=== PATIENT | male | born 1985 | race Caucasian/White ===

== ENCOUNTER 2019-01-18 02:07 | Emergency (ER) | payer SELFPAY ==
[~2019-01-18] VITALS: Ht 180.3 cm; Wt 104.3 kg
[2019-01-18] MEDS ORDERED: NORCO 5-325 TA1 EACH PO (02:50)
== END 2019-01-18 03:01 | disposition home or self-care (01) ==
LOC: ED 02:07
PROC: 08C8XZZ Extirpation of Matter from Right Cornea, External Approach (ICD-10-PCS; principal; 2019-01-18)
DX: T15.01XA Foreign body in cornea, right eye, initial encounter (principal); F17.200 Nicotine dependence, unspecified, uncomplicated; X58.XXXA Exposure to other specified factors, initial encounter
CPT/HCPCS: 65222; 99283-25

== ENCOUNTER 2019-11-07 22:01 | Emergency (ER) | payer OTHER ==
[~2019-11-07] VITALS: Ht 180.3 cm; Wt 104.3 kg
[~2019-11-07 22:01] MED LIST: NORCO 5-325 TA1 EACH PO
[2019-11-07] MEDS ORDERED: GUAIFENESIN AC473 ML PO (23:23)
== END 2019-11-07 23:54 | disposition home or self-care (01) ==
LOC: ED 22:01
DX: J10.1 Influenza due to other identified influenza virus with other respiratory manifestations (principal); F17.200 Nicotine dependence, unspecified, uncomplicated
CPT/HCPCS: 71046; 87502; 99283-25

== ENCOUNTER 2020-04-23 05:09 | Emergency (ER) | payer OTHER ==
[~2020-04-23] VITALS: Ht 180.3 cm; Wt 106.6 kg
[~2020-04-23 05:09] MED LIST changes: +GUAIFENESIN AC473 ML PO
--- NOTE | 2020-04-23 15:41 | EKG ---
[facility] [address] [facility] [place] [address] Signed Sinus tachycardia Moderate voltage criteria for LVH, may be normal variant Cannot rule out Septal infarct , age undetermined Possible Inferior infarct , age undetermined Abnormal ECG No previous ECGs available Confirmed by RON DIAZ MD ([id number]) on 04/23/2020 3:41:49 PM Electronically Signed By: RON DIAZ MD 04/23/20 1541 PATIENT NAME: MARINOVERONICA I Electrocardiogram DATE OF : 85 PHYSICIAN: RON DIAZ MD REPORT #: [id number] REPORT IS CONFIDENTIAL AND NOT TO BE RELEASED WITHOUT AUTHORIZATION
== END 2020-04-23 07:32 | disposition home or self-care (01) ==
LOC: ED 05:09
DX: S93.402A Sprain of unspecified ligament of left ankle, initial encounter (principal); R00.0 Tachycardia, unspecified; E86.0 Dehydration; F10.129 Alcohol abuse with intoxication, unspecified; F15.90 Other stimulant use, unspecified, uncomplicated; Z23 Encounter for immunization; E11.9 Type 2 diabetes mellitus without complications; F17.200 Nicotine dependence, unspecified, uncomplicated; X58.XXXA Exposure to other specified factors, initial encounter
CPT/HCPCS: 51701; 73030; 73610; 80053; 81001; 83735; 84484; 85025; 90471; 90715; 93005; 93010; 99285-25; G0480; J7030

== ENCOUNTER 2020-09-28 14:34 | Emergency (ER) | payer OTHER ==
[~2020-09-28] VITALS: Ht 180.3 cm; Wt 106.6 kg
[2020-09-29] MEDS ORDERED: IVERMECTIN3 MG PO (09:41)
== END 2020-09-28 17:45 | disposition home or self-care (01) ==
LOC: ED 14:34
DX: R21 Rash and other nonspecific skin eruption (principal)

== ENCOUNTER 2020-09-29 08:53 | Emergency (ER) | payer OTHER ==
[~2020-09-29] VITALS: Ht 180.3 cm; Wt 106.6 kg
--- OUTSIDE RECORDS SUMMARY | 2020-09-29 08:56 | XMS ---
PreManage Notification: VERONICA MARINO Security Coordinator Cardiopulmonary Services Events No recent Security Events currently on file CRITERIA MET - [facility] - 2 Visits in 30 Days CARE PROVIDERS There are no care providers on record at this time. Monica has no Care Guidelines for this patient. [facility]12 MO.) [facility] NOTE: Visits indicate total known visits. ED/C VISIT TRACKING (12 MO.) [facility]29[facility]2020 08[facility] COMPLAINT: - BODY RASH 09/28/2020 14:34 [facility] [place] TYPE: Emergency COMPLAINT: - SKIN PROBLEM, RASH 04/23/2020 05:09 [facility] [place] TYPE: Emergency COMPLAINT: - L ANKLE INJ DIAGNOSES: - Pain in left ankle and joints of left foot - Nicotine dependence, unspecified, uncomplicated - Encounter for immunization - Alcohol abuse with intoxication, unspecified - Type 2 diabetes mellitus without complications - Dehydration - Sprain of unspecified ligament of left ankle, initial encounter - Exposure to other specified factors, initial encounter - Tachycardia, unspecified - Other stimulant use, unspecified, uncomplicated 11/07/2019 22:01 [facility] [place] TYPE: Emergency COMPLAINT: - COUGH,SOB DIAGNOSES: - Cough - Nicotine dependence, unspecified, uncomplicated - Influenza due to other identified influenza virus with other respiratory manifestations INPATIENT VISIT TRACKING (12 MO.) No inpatient visits to display in this time frame [email or web address]
[2020-09-29] MEDS ORDERED: IVERMECTIN3 MG PO (09:41)
== END 2020-09-29 09:51 | disposition home or self-care (01) ==
LOC: ED 08:53
DX: B86 Scabies (principal); E11.9 Type 2 diabetes mellitus without complications; F17.200 Nicotine dependence, unspecified, uncomplicated
CPT/HCPCS: 99282

== ENCOUNTER 2021-04-12 12:35 | Emergency (ER) | payer OTHER ==
[~2021-04-12] VITALS: Ht 180.3 cm; Wt 109.8 kg
[~2021-04-12 12:35] MED LIST changes: +IVERMECTIN3 MG PO
[2021-04-12] MEDS ORDERED: PRILOSEC OTC20 MG PO (13:34)
[2021-04-12] MEDS ORDERED: BLEPH-105 ML OPTH (17:41)
== END 2021-04-12 18:10 | disposition home or self-care (01) ==
LOC: ED 12:35
DX: T65.891A Toxic effect of other specified substances, accidental (unintentional), initial encounter (principal); H10.213 Acute toxic conjunctivitis, bilateral; Z87.891 Personal history of nicotine dependence; Z79.899 Other long term (current) drug therapy
CPT/HCPCS: 99283

== ENCOUNTER 2021-07-31 12:20 | Emergency (ER) | payer OTHER ==
[~2021-07-31] VITALS: Ht 180.3 cm; Wt 109.8 kg
[~2021-07-31 12:20] MED LIST changes: +BLEPH-105 ML OPTH; +PRILOSEC OTC20 MG PO
== END 2021-07-31 14:03 | disposition home or self-care (01) ==
LOC: ED 12:20
DX: H10.12 Acute atopic conjunctivitis, left eye (principal); Z87.891 Personal history of nicotine dependence
CPT/HCPCS: 99283

== ENCOUNTER 2022-11-01 14:41 | Emergency (ER) | payer OTHER ==
[~2022-11-01] VITALS: Ht 180.3 cm; Wt 109.8 kg
[~2022-11-01 14:41] MED LIST changes: +HYDROCODON-ACE1 EA10 PO; +NAPROSYN500 MG PO
[2022-11-01] MEDS ORDERED: ONDANSETRON ODT4 MG PO (18:21)
[2022-11-01] MEDS ORDERED: DICYCLOMINE HCL20 MG PO (18:21)
--- NOTE | 2022-11-01 21:51 | EKG ---
[facility] [address] [facility] [place] [address] Signed Sinus tachycardia Cannot rule out Anterior infarct (cited on or before 23-APR-2020) Abnormal ECG When compared with ECG of 23-APR-2020 05:14, Borderline criteria for Inferior infarct are no longer present Questionable change in initial forces of Septal leads Confirmed by Addy Merida MD () on 11/01/2022 9:51:20 PM Electronically Signed By: ADDY MERIDA MD 11/01/222150 PATIENT NAME: VERONICA MARINO I Electrocardiogram DATE OF : 85 PHYSICIAN: ADDY MERIDA MD REPORT #: [id number] REPORT IS CONFIDENTIAL AND NOT TO BE RELEASED WITHOUT AUTHORIZATION
== END 2022-11-01 19:00 | disposition home or self-care (01) ==
LOC: ED 14:41
DX: K52.9 Noninfective gastroenteritis and colitis, unspecified (principal); Z87.891 Personal history of nicotine dependence; Z79.899 Other long term (current) drug therapy; Z20.822 Contact with and (suspected) exposure to COVID-19
CPT/HCPCS: 36415; 74177; 80053; 81003; 83605; 83690; 85025; 87502; 93005; 93010; 96361; 96375; 99284-25; C9803; J1170; J2405; J7030; Q9967; U0003

== ENCOUNTER 2023-07-31 09:45 | Emergency (ER) | payer OTHER ==
[~2023-07-31] VITALS: Ht 180.3 cm; Wt 111.5 kg
[~2023-07-31 09:45] MED LIST changes: +DICYCLOMINE HCL20 MG PO; +ONDANSETRON ODT4 MG PO; +PENICILLIN V P500 MG PO
[2023-07-31] MEDS ORDERED: AMOX TR-K CLV1 EAC1 PO (10:03)
[2023-07-31] MEDS ORDERED: BACTRIM DS TAB1 EACH PO (10:31)
[2023-07-31] MEDS ORDERED: FAMCICLOVIR500 MG PO (10:31)
[2023-07-31 10:40] VITALS: BP 142/82
== END 2023-07-31 10:40 | disposition home or self-care (01) ==
LOC: ED 09:45
DX: L03.211 Cellulitis of face (principal); Z87.891 Personal history of nicotine dependence; Z91.09 Other allergy status, other than to drugs and biological substances
CPT/HCPCS: 99283; A9270

== ENCOUNTER 2024-08-10 15:10 | Emergency (ER) | payer OTHER ==
[~2024-08-10] VITALS: Ht 180.3 cm; Wt 115.9 kg
[~2024-08-10 15:10] MED LIST changes: +AMOX TR-K CLV1 EAC1 PO; +BACTRIM DS TAB1 EACH PO; +FAMCICLOVIR500 MG PO; +OXYCODONE HCL10 MG PO; +TYLENOL325 MG PO
[2024-08-10] MEDS ORDERED: DIPHTH,PERTUSS(ACELL),TET VAC 0.5 ML SYRINGE IM ONE (15:45)
[2024-08-10 17:44] VITALS: BP 166/96
== END 2024-08-10 17:44 | disposition home or self-care (01) ==
LOC: ED 15:10
DX: S61.012A Laceration without foreign body of left thumb without damage to nail, initial encounter (principal); Z87.891 Personal history of nicotine dependence; Z91.048 Other nonmedicinal substance allergy status; Z23 Encounter for immunization; W26.8XXA Contact with other sharp object(s), not elsewhere classified, initial encounter
CPT/HCPCS: 12001; 90471; 90715; 99282-25

== ENCOUNTER 2024-10-12 01:07 | Observation (INO) | payer OTHER ==
[~2024-10-12] VITALS: Ht 180.3 cm; Wt 116.7 kg
[2024-10-12] MEDS ORDERED: ondansetron HCL 4 MG/2 ML VIAL IV ONE (01:30)
[2024-10-12] MEDS ORDERED: SODIUM CHLORIDE 0.9% 1,000 ML IV ONE (01:30)
[2024-10-12] MEDS ORDERED: MORPHINE SULFATE 4 MG/ML VIAL IV ONE (01:30)
[2024-10-12 01:52] LABS: BASOPHILS 0.9 % (0-2); EOSINOPHILS 2.3 % (0-6); HEMATOCRIT 48.6 % (35.0-50.0); HEMOGLOBIN 17.1 g/dL (12.0-18.0); LYMPHOCYTES 32.3 % (24-44); MCH 31.1 (27-36); MCHC 35.2 g/dl (30-36); MCV 88.3 fl (81-99); MONOCYTES 10.6 % (0-12); NEUTROPHILS 53.9 % (39-80); PLATELET COUNT 235 K/uL (140-440); RDW 11.8 (10.5-15.0)
[2024-10-12 02:07] LABS: ALBUMIN 3.9 g/dL (3.4-5.0); ALBUMIN/GLOBULIN RATIO 0.95 (1.1-2.4); ANION GAP 12.9 (7-21); BILIRUBIN, TOTAL 0.4 ng/dL (0.2-1.0); BUN/CREATININE RATIO 17.59 (6.0-28.6); CREATININE, SERUM 1.08 mg/dL (0.70-1.30); POTASSIUM 3.9 mmol/L (3.5-5.1)
[2024-10-12 02:39] LABS: BILIRUBIN, URINE NEGATIVE (negative); BLOOD/HGB, URINE NEGATIVE (Negative); KETONE, URINE TRACE (Negative); LEUK ESTERASE, URINE NEGATIVE (negative); NITRITE, URINE NEGATIVE (negative)
[2024-10-12] MEDS ORDERED: HYDROmorphone HCL 1 MG/ML SYR IV PRN (02:45)
[2024-10-12] MEDS ORDERED: HYDROmorphone HCL 1 MG/ML SYR IV ONE (05:00)
[2024-10-12] MEDS ORDERED: droPERidol 5 MG/2 ML VIAL IV ONE (05:15)
[2024-10-12] MEDS ORDERED: LACTATED RINGER'S 1,000 ML IV ONE (05:15)
[2024-10-12] MEDS ORDERED: LACTATED RINGER'S 1,000 ML IV SCH (07:00)
[2024-10-12] MEDS ORDERED: PROCHLORPERAZINE EDISYLATE 10 MG/2 ML VIAL IV PRN (07:00)
[2024-10-12] MEDS ORDERED: ondansetron HCL 4 MG/2 ML VIAL IV PRN (07:00)
[2024-10-12] MEDS ORDERED: FAMOTIDINE 20 MG/ 2 ML VIAL IV SCH (09:00)
[2024-10-12 10:06] VITALS: BP 166/95
[2024-10-12] MEDS ORDERED: MENTHOL/CETYLPYRD CL 1 LOZ LOZENGE PO PRN (10:30)
--- NOTE | 2024-10-12 10:45 | NUR ---
ADMISSION ASSESSMENT COMPLETE - PT AMBULATING AROUND BED IN ROOM, ANXIOUS TO RESOLVE OBSTRUCTION. PT IS PASSING GAS, DENIES ABD PAIN AT THIS TIME. ABD DISTENDED WITH ACTIVE TONES. NGT TO LIS, BILE WITH ALEX BLOOD FROM INSERTION DRAINING. IV SITE PATENT, IVF RUNNING. PT ORIENTED TO ROOM, URNIAL PROVIDED, DENIES QUETIONS AT THIS TIME.
[2024-10-12] MEDS ORDERED: PRILOSEC OTC20 MG PO (11:25)
--- NOTE | 2024-10-12 11:27 | NUR ---
MED REC COMPLETE
--- NOTE | 2024-10-12 11:36 | NUR ---
PT REQUESTED CEPACOL LOZENGE. DENIES FURTHER NEEDS.
--- NOTE | 2024-10-12 13:45 | NUR ---
REPORT REC'D FROM ABELARDO SEAY. PT NOTED AMBULATING IN [place], NGT CLAMPED, IVF INFUSING VIA PUMP. STEADY GAIT, NO C/O
[2024-10-12 14:45] VITALS: BP 179/98
[2024-10-12 14:54] VITALS: BP 179/98
--- NOTE | 2024-10-12 17:15 | NUR ---
PT AMBULATING IN [place], NO ACUTE DISTRESS NOTED.
[2024-10-12 18:24] VITALS: BP 179/98
--- NOTE | 2024-10-12 18:25 | NUR ---
SCD'S PLACED IN PATIENT ROOM AND DISCUSSED USE. PT THEN AMBULATING IN [place] AND PLANS TO USE SCD'S DURING NOC.
[2024-10-12 20:35] VITALS: BP 177/102
--- NOTE | 2024-10-12 21:15 | NUR ---
PT C/O PAIN AND NAUSEA. MEDICATED WITH ZOFRAN AND DILAUDID WELL SCHEDULED PEPCID. NGT CONTINUES TO DRAIN CLEAR BROWN/GREEN TINGED FLUID. MD REQUESTED NS BOLUS X 1L OVER 1H TO BE GIVEN, ORDER PLACED AND STARTED.
[2024-10-12] MEDS ORDERED: SODIUM CHLORIDE 0.9% 1,000 ML IV SCH (21:45)
[2024-10-12 21:50] VITALS: BP 177/102
[2024-10-13] VITALS (8 sets, daily range): BP systolic 14–182; BP diastolic 90–99
--- NOTE | 2024-10-13 00:02 | NUR ---
PT PLEASANT AND COOPERATIVE WITH CARE, AMBULATING FREQUENTLY T/O SHIFT. LATER IN THE EVENING PT STARTED TO C/O PAIN AND NAUSEA. PT WAS MEDICATED X3 FOR PAIN AND X2 FOR NAUSEA. PT TOLERATED IVF BOLUS. SUCTION CANISTER CHANGED, PATIENT PROVIDED URINAL FOR CONTINUED USE. CALL BRUNO IN REACH, SR UP X2, BED LOW POSITION AND LOCKED. PT A&O, INDEPENDENT IN ROOM
--- NOTE | 2024-10-13 01:52 | NUR ---
REPORT RECEIVED FROM JANA ZHOU AND CARE ASSUMED OF PT. IN TO CHECK ON HIM, EYES CLOSED, RESP EVEN AND UNLABORED. IVF INFUSING, NGT IN PLACE. CALL LIGHT INREACH.
--- NOTE | 2024-10-13 03:06 | NUR ---
PT RESTING WITH EYES CLSOED, RESP EVEN AND UNLABORED.
--- NOTE | 2024-10-13 05:50 | NUR ---
MD IN TO SEE PT, DISUSS NGT AND PLAN OF CARE. NGT WAS CUT BY TO REMOVE BLUE REFLUX VALVE. MD THEN STATES HE WANTS THE NGT CLAMPED, SO NEW ONE PLACED ON END OF NGT. PT UP TO AMBULATE IN HALLS.
[2024-10-13 07:26] LABS: BASOPHILS 0.5 % (0-2); EOSINOPHILS 1.1 % (0-6); HEMATOCRIT 46.4 % (35.0-50.0); HEMOGLOBIN 16.2 g/dL (12.0-18.0); LYMPHOCYTES 15.4 % (24-44); MCHC 34.9 g/dl (30-36); MCV 88.8 fl (81-99); PLATELET COUNT 216 K/uL (140-440); RBC 5.22 M/ul (4.3-5.7); RDW 11.7 (10.5-15.0)
--- NOTE | 2024-10-13 07:33 | NUR ---
VERBAL REPORT RECEIVED FROM ABELARDO NIELSEN. PT RESTS IN BED WITH EYES CLOSED, RESP EVEN AND UNLABORED.
[2024-10-13 07:35] LABS: ANION GAP 10.1 (7-21); BUN/CREATININE RATIO 11.92 (6.0-28.6); CREATININE, SERUM 1.09 mg/dL (0.70-1.30); POTASSIUM 4.1 mmol/L (3.5-5.1)
--- NOTE | 2024-10-13 10:03 | NUR ---
PT AMBLATES IN HALLWAY WITH STEADY GAIT.
--- NOTE | 2024-10-13 12:05 | NUR ---
NG CONNECTED TO [facility] FOR RESIDUAL CHECK.
--- NOTE | 2024-10-13 12:34 | NUR ---
PT REPORTS 8-05/21 RIGHT SINUS/NASAL PAIN AND CONGESTION. PT STATES HE USUALLY USES AFRIN SPRAY AND HAS BEEN USING IT IN THE LEFT NARE BUT CANNOT GET IT INTO THE RIGHT NARE DUE TO THE NG TUBE. PT VERBALIZES HE UNDERSTANDS THAT HE SHOULD NOT BE USING THE AFRIN SPRAY IN THE HOSPITAL WITHOUT THE DOCTOR ORDING BUT STATES, "I HAD TO USE IT, IT WHAT I USE AT HOME AND I COULDN'T TAKE IT ANY MORE." DILAUDID RECEIVED. NOTED 100 ML OF OUTPUT FROM SUCTION TO NG TUBE, VISCOUS AND RED TINGED. PT DENIES NAUSEA OR ABDOMINAL PAIN TODAY. REPORTS FLATUS.
--- NOTE | 2024-10-13 12:48 | NUR ---
DR. MARCANO NOTIFIED OF PT STATUS, RESIDUAL CHECK AND PT DISCOMFORT WITH NG TUBE AND AFRIN SPRAY USE. NEW ORDER RECEIVED FOR AFRIN SPRAY, DR. MARCANO ADVISES TO REINFORCED EDUCATION ON POC. NG TUBE TO BE CLAMPED AND RESIDUAL RE-CHECKED AT 1800. .
[2024-10-13] MEDS ORDERED: OXYMETAZOLINE HCL 30 ML BTL NAS PRN (13:00)
--- NOTE | 2024-10-13 13:03 | NUR ---
NG TUBE CLAMPED. REVIEWED POC WITH PT, PT VERBALIZES UNDERSTANDING AND IS AGREEALBE.
--- NOTE | 2024-10-13 14:08 | NUR ---
PT REPORTS "SPINNING NAUSEA FROM THE CONGESTION IN MY HEAD." COMPAZINE RECEIVED AND DILAUDID RECEIVED FOR HEADACHE PAIN, SEE EMAR.
--- NOTE | 2024-10-13 15:16 | NUR ---
PT RESTS IN BED WITH EYES CLOSED, RESP EVEN AND UNLABORED.
--- NOTE | 2024-10-13 17:58 | NUR ---
DR. MARCANO INTO ASSESS PT, NG TUBE RESIDUAL CHECKED, 100 MLS OF VISCOUS GREEN TINGED OUTPUT NOTED. DR. MARCANO REMOVED NG TUBE, PT TOLERATES THIS WELL. NEW ORDERS RECEIVED TO ADVANCE DIET TO CLEAR LIQUIDS AND DECREASE LR INFUSION RATE TO 125 ML/HR.
[2024-10-13] MEDS ORDERED: MAGNESIUM HYDROXIDE/AL HYDROX 30 ML CUP PO PRN (19:00)
--- NOTE | 2024-10-13 19:39 | NUR ---
Patient awake, alert and oriented x4, no acute distress. Patient reports tolerable pain, no nausea. Pt states he is going to walk in hallway with his . Call light within reach.
--- NOTE | 2024-10-13 20:37 | NUR ---
Patient reports throat pain, heartburn and headache. Admin dilaudid 0.5mg iv and cepacal lozenge. Patient denies nausea, acitve bowel tones x4 quadrants. Patient reports he is feeling much better after ng removal. Abdomen is soft to touch, pt reports passing flatus.
--- NOTE | 2024-10-14 03:43 | NUR ---
PT CALL LIGHT IN PLACE, IV FLUIDS COMPLETED. NEW BAG HUNG - SEE MAR. DENIES ANY FURTHER NEEDS AT THIS TIME. CALL LIGHT WITHIN REACH. ALL PT CARE NEEDS MET. PRIMARY RN NOTIFIED.
[2024-10-14 06:02] VITALS: BP 159/89
[2024-10-14 06:04] VITALS: BP 158/97
--- NOTE | 2024-10-14 07:18 | NUR ---
VERBAL REPORT RECEIVED FROM ABELARDO RUSH. PT AMBULATES HALLWAY SEVERAL TIMES, STEADY GAIT. NO REQUESTS AT THIS TIME.
--- NOTE | 2024-10-14 08:23 | NUR ---
Patient ambulating hallways.
--- NOTE | 2024-10-14 08:31 | NUR ---
IV TO ERICA.
[2024-10-14 08:48] VITALS: BP 158/84
[2024-10-14 08:50] VITALS: BP 158/84
--- NOTE | 2024-10-14 09:41 | NUR ---
ALERT AND ORIENTED IN RECLINER. STATES HE HAS NO DME. HAS NO ISSUES PAYING FOR UTILITES, FOOD OR MEDICATIONS. PLANS TO RETURN HOME WHEN MEDICALLY STABLE. NO CM NEEDS AT THIS TIME.
--- NOTE | 2024-10-14 10:07 | NUR ---
UR CLINICAL REVIEW: [facility] CRITERIA FOR OBS DUE TO PARTIAL SBO ODS [facility] ORDER MATCHES REG NO AUTH REQUIRED FOR OBS VISIT DISCHARGE TO HOME TODAY IF DIET TOLERATED 10/15/24
--- NOTE | 2024-10-14 11:32 | NUR ---
Patient has periodically been up ambulating the hallways. Urinal was emptied and rinsed out.
--- NOTE | 2024-10-14 11:46 | NUR ---
PT NOT AVAILABLE FOR VISIT. PROVIDED PRAYER.
--- NOTE | 2024-10-14 13:11 | NUR ---
PT AMBULATES IN HALLWAY WITH STEADY GAIT. PT EATS LUNCH, FULL LIQUID DIET, TOLERATING THIS WELL, DENIES PAIN, NAUSEA, OR DISCOMFORT AT THIS TIME.
--- NOTE | 2024-10-14 13:39 | NUR ---
DR. MARCANO, SEES PT, NEW ORDER RECEIVED TO ADVANCE PT TO REGULAR DIET.
[2024-10-14 14:17] VITALS: BP 168/11; BP 168/111
--- NOTE | 2024-10-14 15:06 | NUR ---
Patient is in bed working on their computer. BP was high, retaken, and reported to charge nurse Malini.
[2024-10-14 18:19] VITALS: BP 158/81
--- NOTE | 2024-10-14 18:37 | NUR ---
PT EATS DINNER, TOLERATES THIS WELL, DR. MARCANO SEES PT, NEW ORDERS RECEIVED FOR DISCHARGE. IV REMOVED, TIP INTACT, GAUZE AND COBAN DRESSING APPLIED TO SITE, PT TOLERATED WELL. VSS. DISCUSSED DISCHARGE INSTRUCTIONS WITH PT, PT VERBALIZES UNDERSTANDING. PT DRESSES SELF.
--- NOTE | 2024-10-14 18:44 | NUR ---
ABELARDO Guadalupe in room preparing patient for discharge.
--- NOTE | 2024-10-14 20:08 | NUR ---
PT WAS IN ROOM TALKING WITH PHYSICIAN, PT LEFT HTE FLOOR AT 2007, BELONGINGS IN HAND. NO ISSUES OR CONCERNS AT DISCHARGE.
== END 2024-10-14 20:05 | disposition home or self-care (01) ==
LOC: ED 01:07 → MS 01:08
PROVIDERS: Family Medicine; ADMIT Transplant Surgery; ATTEND Transplant Surgery
DX: K56.600 Partial intestinal obstruction, unspecified as to cause (principal); H10.12 Acute atopic conjunctivitis, left eye; K52.9 Noninfective gastroenteritis and colitis, unspecified; Z91.018 Allergy to other foods; Z87.891 Personal history of nicotine dependence
CPT/HCPCS: 36415; 74018; 74177; 80048; 80053; 81003; 83605; 83690; 85025; 96361; 96375; 96376; 99285-25; A9270; G0378; J0780; J1171; J1790; J2270; J2405; J7030; J7121; Q9967